=== PATIENT | female | born 1980 | race Hispanic/Latino ===

== ENCOUNTER → 2024-06-12 09:09 | Outpatient (CLI) | payer OTHER, BC, SELFPAY ==
--- NOTE | 2024-06-12 09:16 | DI.US.S_ITS ---
PROCEDURE: US ABDOMEN LIMITED INDICATIONS: localized skin mass TECHNIQUE: Real-time focused scanning was performed of the right chest wall palpable region, with image documentation. COMPARISON: None. FINDINGS: There is an ovoid, horizontally oriented, fairly well-circumscribed mass, isoechoic to adjacent subcutaneous fat. This measures 3.7 x 1.6 x 5.2 cm. There is no internal or peripheral vascular flow. There is good through transmission. No posterior shadow. No cystic components. IMPRESSION: Chest wall palpable abnormality corresponds to a benign-appearing lipoma. Dictated by: Sahra Coley M.D. on 06/12/2024 at 13:16 Approved by: Sahra Coley M.D. on 06/12/2024 at 13:18
== END ==
PROVIDERS: PCP Naturopath; Referring Provider Nurse Practitioner Family; Visit Provider Nurse Practitioner Family
DX: R22.2 Localized swelling, mass and lump, trunk (principal)
CPT/HCPCS: 76705